=== PATIENT | male | born 1980 | race Caucasian/White ===

== ENCOUNTER 2019-07-04 20:45 | Emergency (ER) | payer SELFPAY ==
[~2019-07-04] VITALS: Ht 170.2 cm; Wt 83.5 kg
[~2019-07-04 20:45] MED LIST: ACET500C5 PO; HYDR-3980 PO; IBUP800T48 PO; NALO4SPR NS; NAPR-985 PO; ONDA4TAB14 PO
[2019-07-04 20:50] VITALS: Ht 170.2 cm; Wt 83.5 kg
[2019-07-04] MEDS ORDERED: SOD CHLORIDE 0.9% 1,000 ML IV STA (21:50)
[2019-07-04] MEDS ORDERED: KETOROLAC 30 MG INJ IV STA (21:50)
[2019-07-04 23:58] VITALS: BP 122/66; PULSE 71; RESP 17
== END 2019-07-04 23:58 | disposition home or self-care (01) ==
LOC: FTE 20:45
DX: M25.511 Pain in right shoulder (principal); M79.631 Pain in right forearm
CPT/HCPCS: 36415; 73030; 73090; 80053; 84560; 85025; 85651; 86140; 96361; 96374; 99284; J1885; J7030

== ENCOUNTER 2019-07-25 07:31 | Emergency (ER) | payer SELFPAY ==
[~2019-07-25] VITALS: Ht 170.2 cm; Wt 84.0 kg
[2019-07-25 07:36] VITALS: Ht 170.2 cm; Wt 84.0 kg
[2019-07-25] MEDS ORDERED: KETOROLAC 30 MG INJ IV STA (07:42)
[2019-07-25] MEDS ORDERED: ONDANSETRON 4 MG INJ IV STA (09:13)
[2019-07-25] MEDS ORDERED: morphine 4 MG/ML VIAL IV STA (09:13)
[2019-07-25] MEDS ORDERED: DEXAMETHASONE 10 MG/ML 1 ML INJ IV ONE (09:30)
[2019-07-25 10:00] VITALS: BP 118/70; PULSE 78; RESP 20
== END 2019-07-25 10:00 | disposition home or self-care (01) ==
LOC: E/R 07:31
DX: M25.512 Pain in left shoulder (principal); M19.90 Unspecified osteoarthritis, unspecified site
CPT/HCPCS: 36415; 73030; 80048; 84560; 85025; 85651; 86140; 96374; 96375; 99284; J1100; J1885; J2270; J2405

== ENCOUNTER 2019-09-18 13:30 | Emergency (ER) | payer MEDICAID ==
[~2019-09-18] VITALS: Ht 172.7 cm; Wt 82.2 kg
[~2019-09-18 13:30] MED LIST changes: +CYCL10TA7 PO; +IBUP-1542 PO
[2019-09-18 13:36] VITALS: Ht 172.7 cm; Wt 82.2 kg
[2019-09-18] MEDS ORDERED: KETOROLAC 30 MG INJ IM STA (14:07)
[2019-09-18 14:38] VITALS: BP 121/82; PULSE 74; RESP 18
== END 2019-09-18 14:40 | disposition home or self-care (01) ==
LOC: FTE 13:30
DX: R07.89 Other chest pain (principal)
CPT/HCPCS: 93005; 96372; J1885; Z7502